=== PATIENT | female | born 1940 | race Caucasian/White ===

== ENCOUNTER 2023-01-06 06:33 | Inpatient (IN) | payer MEDICARE, OTHER ==
[2022-12-31 15:47] VITALS: BP 143/75; PULSE 55; RESP 18; TEMP 98.2; O2SAT 97
[2022-12-31 16:41] LABS: BILIRUBIN,URINE NEGATIVE (NEGATIVE); LEUKOCYTE ESTERASE ,URINE 1+ (NEGATIVE); NITRATE,URINE POSITIVE (NEGATIVE); PH,URINE 5.5 (4.5-8.0); UROBILINOGEN,URINE 0.2 E.U./dL (0.2)
[2022-12-31 16:44] LABS: +ADD MANUAL DIFF(NO CHRG) NO; BASOPHIL % 0.4 % (0.0-0.2); EOSINOPHIL # 0.2 10^3/uL (0.0-0.2); EOSINOPHIL % 2.7 % (0.0-5.0); HEMOGLOBIN 10.6 g/dL (12.0-15.0); LYMPHOCYTES # 2.77 10^3/uL1 (1.0-4.8); MEAN CORP HGB 27.7 pg (26-34); MEAN CORP HGB CONCENTRATION 32.1 g/dL (33-36.5); MEAN CORP VOLUME 86.4 fL (78-100); MONOCYTES # 0.8 10^3/uL (0.3-0.8); MONOCYTES % 11.3 % (5.0-12.0); NEUTROPHILS % 44.5 % (41.0-85.0); PLATELET COUNT 308 10^3/uL (150-400); RED BLOOD CELL 3.82 10^6/uL (4.00-5.20); RED CELL DISTRIBUTION WIDTH 14.3 % (11.5-14.5); WHITE BLOOD CELL 6.8 10^3/uL (4.5-11.0)
[2022-12-31 16:48] LABS: APPEARANCE,URINE CLEAR; UA COLOR STRAW
[2022-12-31 16:54] LABS: ALBUMIN(ML) 3.7 g/dL (3.4-5.0); ALBUMIN/GLOBULIN RATIO 1.193; ANION GAP 13.7; CALCIUM 9.6 mg/dL (8.4-10.5); CARBON DIOXIDE 26.2 mmol/L (20.0-32); CREATININE SERUM 1.07 mg/dL (0.59-1.40); EST GFR, NON-AA 49.2 (>/=60); POTASSIUM 3.9 mmol/L (3.6-5.2)
[2023-01-06] VITALS (17 sets, daily range): BP systolic 121–183; BP diastolic 61–106; PULSE 50–96; RESP 16–18; TEMP 97.5–98.9; O2SAT 91–97
[~2023-01-06] VITALS: Ht 162.6 cm; Wt 54.9 kg
[~2023-01-06 06:33] MED LIST: AMLO-169 PO; ANCEF 2 GM in NS 100ML 100 ML IV ONE; ANCEF ONE; ASPI-485 PO; ASPI-667 PO; ATOR40TA PO; BACI1TAB2 PO; BACTROBAN OINTMENT TP ONE; CALC-29 PO; CHOL100015 PO; CLON0.2T PO; IBUP1TAB12 PO; LACTATED RINGERS 1,000 ML IV ONE; LEVO100T5 PO; LEVO112T5 PO; LEVO500C2 PO; LISI20TA21 PO; MAGN100T3 PO; MELA3TAB31 PO; MULT-602 PO; NEBI10TA3 PO; NEBI5TAB3 PO; NS 100ML 100 ML IV ONE; POTA99TA25 PO; UBID100C23 PO; [UNRECOGNIZED DRUG - CODE] PO
[2023-01-06] MEDS ORDERED: ULTRAM ONE (06:47)
[2023-01-06] MEDS ORDERED: NS 100ML 100 ML IV ONE (06:47)
[2023-01-06] MEDS ORDERED: TRANSDERM-SCOP TD ONE (07:00)
[2023-01-06] MEDS ORDERED: OFIRMEV 1000 MG/100 ML IV ONE (07:00)
[2023-01-06] MEDS ORDERED: ZOFRAN IV ONE (07:00)
[2023-01-06] MEDS ORDERED: NEURONTIN PO ONE (07:00)
[2023-01-06] MEDS ORDERED: DECADRON IV ONE (07:00)
[2023-01-06] MEDS ORDERED: ULTRAM PO ONE ×2 (07:00→07:30)
[2023-01-06] MEDS ORDERED: PEPCID IV ONE (07:00)
[2023-01-06] MEDS ORDERED: REGLAN IV ONE (07:00)
[2023-01-06] MEDS ORDERED: CELEBREX PO ONE (07:00)
[2023-01-06] MEDS ORDERED: NS 3000ML IRR IR ONE (07:11)
[2023-01-06] MEDS ORDERED: NS 250ML 250 ML ONE (07:12)
[2023-01-06] MEDS ORDERED: WATER ONE (07:12)
[2023-01-06] MEDS ORDERED: SODIUM CHLORIDE IRR BOTTLE IR ONE (07:12)
[2023-01-06] MEDS ORDERED: VERSED ONE (07:36)
[2023-01-06] MEDS ORDERED: EXPAREL 266 MG/20 ML VIAL IJ ONE (07:36)
[2023-01-06] MEDS ORDERED: SENSORCAINE-MPF 0.25% VIAL ONE (07:36)
[2023-01-06] MEDS ORDERED: TRANEXAMIC 1,000 MG/100ML-NACL 200 ML IV ONE (07:56)
[2023-01-06] MEDS ORDERED: DIPRIVAN 100 ML IV ONE (07:56)
[2023-01-06] MEDS ORDERED: VITAMIN D3 PO SCH (09:30)
[2023-01-06] MEDS ORDERED: DILAUDID IV PRN (10:30)
[2023-01-06] MEDS ORDERED: DILAUDID ONE (10:45)
[2023-01-06] MEDS: DILAUDID IV PRN ×4 (10:46→11:28)
[2023-01-06] MEDS ORDERED: APRESOLINE ONE (10:57)
[2023-01-06] MEDS ORDERED: CEPACOL SORE THROAT LOZENGE MM PRN (11:00)
[2023-01-06] MEDS ORDERED: LACTATED RINGERS 1,000 ML IV SCH (11:00)
[2023-01-06] MEDS ORDERED: TORADOL IV PRN (11:00)
[2023-01-06] MEDS ORDERED: ZOFRAN IV PRN (11:00)
[2023-01-06] MEDS ORDERED: ULTRAM PO PRN ×2 (11:00)
[2023-01-06] MEDS ORDERED: LACTATED RINGERS 1,000 ML ONE (11:27)
[2023-01-06] MEDS: APRESOLINE IV SCH ×2 (12:29→12:31)
[2023-01-06] MEDS: TYLENOL PO SCH ×3 (12:30→23:52)
[2023-01-06] MEDS: ANCEF 2 GM/D5W 50ML IV SCH ×2 (14:03→21:12)
[2023-01-06 17:59] LABS: HEMATOCRIT(ML) 31.5 % (36.0-46.0); HEMOGLOBIN 10.2 g/dL (12.0-15.0); MEAN CORP HGB 27.6 pg (26-34); MEAN CORP HGB CONCENTRATION 32.4 g/dL (33-36.5); MEAN CORP VOLUME 85.1 fL (78-100); RED BLOOD CELL 3.7 10^6/uL (4.00-5.20); RED CELL DISTRIBUTION WIDTH 14.2 % (11.5-14.5); WHITE BLOOD CELL 13.7 10^3/uL (4.5-11.0)
[2023-01-06] MEDS: LOPRESSOR PO SCH (20:43)
[2023-01-06] MEDS: LIPITOR PO SCH (20:43)
[2023-01-06] MEDS: ZESTRIL PO SCH ×2 (20:44→20:55)
[2023-01-06] MEDS: CATAPRES PO SCH (20:45)
[2023-01-06] MEDS: OYSTER SHELL 500-VIT D3 200 TB PO SCH (20:45)
[2023-01-07] VITALS (7 sets, daily range): BP systolic 97–176; BP diastolic 55–87; PULSE 51–58; RESP 16–19; TEMP 98–98.6; O2SAT 88–96
[2023-01-07] MEDS: TYLENOL PO SCH ×4 (05:10→23:17)
[2023-01-07] MEDS: ANCEF 2 GM/D5W 50ML IV SCH (05:10)
[2023-01-07] MEDS ORDERED: SYNTHROID ONE (05:11)
[2023-01-07] MEDS: SYNTHROID PO SCH (05:33)
[2023-01-07 05:41] LABS: HEMATOCRIT(ML) 25.4 % (36.0-46.0); HEMOGLOBIN 8.5 g/dL (12.0-15.0); MEAN CORP HGB 28.4 pg (26-34); MEAN CORP HGB CONCENTRATION 33.5 g/dL (33-36.5); MEAN CORP VOLUME 84.9 fL (78-100); RED BLOOD CELL 2.99 10^6/uL (4.00-5.20); RED CELL DISTRIBUTION WIDTH 14.5 % (11.5-14.5)
[2023-01-07] MEDS: ZESTRIL PO SCH ×2 (09:00→21:06)
[2023-01-07] MEDS: NORVASC PO SCH (09:00)
[2023-01-07] MEDS: CATAPRES PO SCH ×3 (09:00→21:06)
[2023-01-07] MEDS: [UNRECOGNIZED DRUG - OTHER] PO SCH (09:02)
[2023-01-07] MEDS: LOPRESSOR PO SCH ×2 (09:03→21:05)
[2023-01-07] MEDS: THERA PO SCH (09:03)
[2023-01-07] MEDS: XARELTO PO SCH (09:03)
[2023-01-07] MEDS: OYSTER SHELL 500-VIT D3 200 TB PO SCH ×2 (09:04→21:05)
[2023-01-07] MEDS: ASPIRIN PO SCH (09:05)
[2023-01-07] MEDS: COLACE PO SCH (09:05)
[2023-01-07] MEDS: LIPITOR PO SCH (21:05)
[2023-01-08] VITALS (7 sets, daily range): BP systolic 92–171; BP diastolic 61–82; PULSE 50–57; RESP 14–18; TEMP 98.1–98.6; O2SAT 94–97
[2023-01-08] MEDS: TYLENOL PO SCH ×2 (05:13→11:39)
[2023-01-08] MEDS: SYNTHROID PO SCH (05:33)
[2023-01-08 06:21] LABS: BASOPHIL % 0.2 % (0.0-0.2); EOSINOPHIL % 0.2 % (0.0-5.0); HEMATOCRIT(ML) 28.7 % (36.0-46.0); HEMOGLOBIN 9.6 g/dL (12.0-15.0); LYMPHOCYTES # 3.54 10^3/uL1 (1.0-4.8); MEAN CORP HGB 28.2 pg (26-34); MEAN CORP HGB CONCENTRATION 33.4 g/dL (33-36.5); MEAN CORP VOLUME 84.4 fL (78-100); MONOCYTES # 1.1 10^3/uL (0.3-0.8); MONOCYTES % 8.8 % (5.0-12.0); NEUTROPHIL # 7.5 10^3/uL (1.8-7.7); NEUTROPHILS % 61.6 % (41.0-85.0); PLATELET COUNT 275 10^3/uL (150-400); RED CELL DISTRIBUTION WIDTH 14.6 % (11.5-14.5); WHITE BLOOD CELL 12.2 10^3/uL (4.5-11.0)
[2023-01-08 06:25] LABS: +ADD MANUAL DIFF(NO CHRG) NO
[2023-01-08 06:33] LABS: ALBUMIN(ML) 3.2 g/dL (3.4-5.0); ALBUMIN/GLOBULIN RATIO 1.066; ANION GAP 13.6; CALCIUM 9.5 mg/dL (8.4-10.5); CARBON DIOXIDE 25.4 mmol/L (20.0-32); CREATININE SERUM 1.29 mg/dL (0.59-1.40); EST GFR, NON-AA 39.7 (>/=60)
[2023-01-08] MEDS: COLACE PO SCH (09:10)
[2023-01-08] MEDS: OYSTER SHELL 500-VIT D3 200 TB PO SCH (09:10)
[2023-01-08] MEDS: ASPIRIN PO SCH (09:10)
[2023-01-08] MEDS: LOPRESSOR PO SCH (09:11)
[2023-01-08] MEDS: NORVASC PO SCH (09:11)
[2023-01-08] MEDS: XARELTO PO SCH (09:11)
[2023-01-08] MEDS: CATAPRES PO SCH (09:12)
[2023-01-08] MEDS: THERA PO SCH (09:12)
[2023-01-08] MEDS: ZESTRIL PO SCH (09:12)
[2023-01-08] MEDS: [UNRECOGNIZED DRUG - OTHER] PO SCH (09:12)
[2023-01-08] MEDS ORDERED: TRAM50TA PO (09:39)
== END 2023-01-08 12:15 | disposition home or self-care (01) | DRG 470 ==
LOC: MS 06:33
PROVIDERS: ADMIT Orthopaedic Surgery; ATTEND Orthopaedic Surgery
PROC: 0SRB0J9 Replacement of Left Hip Joint with Synthetic Substitute, Cemented, Open Approach (ICD-10-PCS; principal; 2023-01-06 08:00)
DX: M16.12 Unilateral primary osteoarthritis, left hip (principal); D62 Acute posthemorrhagic anemia; E03.9 Hypothyroidism, unspecified; E78.5 Hyperlipidemia, unspecified; I10 Essential (primary) hypertension; Z82.3 Family history of stroke
CPT/HCPCS: 36415; 73502; 76000; 80053; 81001; 85025; 85027; 87070; 87077; 87086; 87186; 93005; 97162; 97166; A4217; C1713; C1776; C9290; G0378; J0131; J0360; J0690; J1100; J1170; J2250; J2405; J2765; J3490; J7050; J7120; J8499; 97116-GP; 97530-GP; 97535-GO